=== PATIENT | male | born 1990 | race Caucasian/White ===

== ENCOUNTER 2017-11-05 17:02 | Emergency (ER) | payer OTHER ==
[2017-11-05] MEDS: OXYCODONE/APAP 5MG/325MG(BULK FOR ED) 1 TABLET PO (20:12)
== END 2017-11-05 20:20 | disposition home or self-care (01) ==
LOC: M ED 17:02
DX: S60.021A Contusion of right index finger without damage to nail, initial encounter (principal); S60.031A Contusion of right middle finger without damage to nail, initial encounter; W28.XXXA Contact with powered lawn mower, initial encounter; Y92.096 Garden or yard of other non-institutional residence as the place of occurrence of the external cause
CPT/HCPCS: 73130